=== PATIENT | male | born 1970 | race Caucasian/White ===

== ENCOUNTER 2018-12-29 08:15 | Emergency (ER) | payer OTHER, SELFPAY ==
[2018-12-29 08:17] VITALS: BP 145/99; PULSE 106; RESP 17; TEMP 36.7; O2SAT 94; BMI 28.5
--- NOTE | 2018-12-29 08:25 | RAD_ITS ---
STUDY: X-RAY - RIGHT SHOULDER REASON FOR EXAM: Male, 48 years old. Post reduction examination. TECHNIQUE: 2 view(s) of the shoulder. COMPARISON: None. FINDINGS: Normal glenohumeral articulation. Normal acromioclavicular joint. Normal acromion. Normal humeral head and visualized proximal humerus. The soft tissue structures are unremarkable. Normal visualized pulmonary apex. RAD/Shoulder min 2 Views IMPRESSION: Normal x-ray examination of the shoulder. Electronically Signed: Dev Burns, at 9:04 EDT , Service support ,
--- NOTE | 2018-12-29 08:40 | ED.DCSUM_ITS ---
- ER Visit Summary Date of Service: 12/29/18 Chief Complaint: [Right shoulder pain/dislocation] History of Present Illness: The patient is a 48 M [presents to the emergency department complaining of pain in his right shoulder and inability to put his arm down. Patient states that he reached for a light bulb last night and felt a pop in his shoulder and was unable to straighten out his shoulder. Patient states that occurred around 9 or 10 PM last night but thought that if he would lay down to go to sleep that it would be better in the morning. Patient had been drinking last night. He denies any falls or other injuries. Patient significant other is with him and states that she witnessed the event there was no other injuries. Patient is right-hand dominant. Patient has no other medical history.] Physical Examination: [HEENT-PERRLA, EOMI. Cranial nerves II through XII g rossly intact. TMs clear. Mucous membranes moist. No adenopathy. Cardiovascular-regular rate and rhythm without murmur or ectopy Lungs-clear to auscultation, chest wall stable without crepitus or subcu emphysema Abdomen-normoactive bowel sounds, soft, nontender, no rebound or rigidity, no peritoneal signs. Extremities-intact ?4, normal range of motion, normal pulses. Right arm-patient holds the arm extended above his head. He has normal sensation normal cap refill. Patient unable to abduct the arm at the shoulder.] Test Results: [X-ray of right shoulder after reduction in ER was obtained which showed good reduction of the shoulder joint and no evidence of fractures.] Emergency Department Course and Treatment: [During examination I applied some traction superiorly on the right arm and he stated that that actually felt much better with tension on it. While I slowly increased tension the arm popped back into the socket. Patient had good pain relief with that and was then able to move the arm and put the arm down to the side.] Treatment Plan: [Patient was placed in a sling. Patient advised not to reach over his head. Patient was given work restrictions as far as no use right arm until cleared by orthopedics.] Disposition: [Discharged home in stable condition. Patient will be referred to orthopedics for follow-up with ] Impression: [Right shoulder dislocation-reduced by emergency room physician.] This note was generated with [employer] software. It may contain incorrect words, spelling, and punctuation that were not noted in review of the chart prior to signing ED Disposition - Plan for ED Patient: Referrals: Mehul Swan MD [Primary Care Provider] -
--- NOTE | 2018-12-29 08:51 | ED.DEP ---
ED Disposition - Plan for ED Patient: Instructions: DISLOCATION: SHOULDER (Reduced) Referrals: Mehul Swan MD [Primary Care Provider] - Shauna Sexton DO [STAFF PHYSICIAN] - 3-5 Days
[2018-12-29 08:56] VITALS: BP 148/98; PULSE 83; RESP 18
== END 2018-12-29 08:58 | disposition home or self-care (01) ==
LOC: ED 08:50
PROVIDERS: Emergency Provider Emergency Medicine; Family Provider Family Medicine; PCP Family Medicine
DX: S43.004A Unspecified dislocation of right shoulder joint, initial encounter (principal); X50.1XXA Overexertion from prolonged static or awkward postures, initial encounter; Y93.9 Activity, unspecified; Y92.9 Unspecified place or not applicable; Y99.9 Unspecified external cause status
CPT/HCPCS: 23650; 73030; 99283

== ENCOUNTER → 2021-11-16 | Outpatient (CLI) | payer OTHER, SELFPAY ==
[2021-11-16 10:13] LABS: Absolute Lymphocyte Count 1.51 X10^3/uL (0.83-4.51); Absolute Neutrophil Count 2.5 X10^3/uL (2.0-7.7); Basophil# 0.04 X10^3/uL; Basophil% 0.8 % (0-1); Eosinophil# 0.11 X10^3/uL; Eosinophils% 2.3 % (0-5); Hematocrit 46.1 % (40-54); Lymphocyte # 1.51 X10^3/ul (0.83-4.51); Lymphocyte % 32.1 % (19-41); Mean Corp Hgb Conc 34.7 g/dL (32-36); Mean Corpuscular Hgb 33.7 pg (27.0-32.0); Mean Corpuscular Volume 97.1 fL (80-94); Mean Platelet Vol. 9.1 fl (6.2-12.0); Monocyte% 10.6 % (0-10); NRBC Flagged by Analyzer 0 % (0-5); Neutrophil # 2.53 X10^3/uL (2.7-7.7); Neutrophil % 53.8 % (47-70); Platelet Count 207 K/mm3 (150-450); RBC Distribution Width CV 11.5 % (11.6-14.6); RBC Distribution Width SD 41.1 fl (35.1-43.9); Red Blood Count 4.75 M/mm3 (4.6-6.2); White Blood Count 4.7 K/mm3 (4.4-11.0)
[2021-11-16 10:38] LABS: Microalbumin,Random Urine 15.9 mg/L (NO RANGE EST.); Microalbumin:Creatinine Ratio 9.8 mg/g CRE (<30 mg/g CRE)
[2021-11-16 10:39] LABS: ALB/GLOB Ratio 1.2 RATIO (0.9-2.4); AST(SGOT) 24 U/L (15-37); Alanine Aminotransfer ALT/SGPT 44 U/L (16-61); Alkaline Phosphatase 64 U/L (45-117); Anion Gap 2 (5-15); BUN 15 mg/dL (7-18); BUN/Creat Ratio 15.1 RATIO (10-20); Chloride 106 mmol/L (98-107); Cholesterol 202 mg/dL (200); Creatinine, Serum 0.99 mg/dL (0.70-1.30); EST Glomerular Filtration Rate 84 mL/min (>60); Est Glom Filt Rate - Afr Amer 102 mL/min (>60); Globulin 3.3 g/dL (2.2-4.2); Glucose 101 mg/dL (74-106); High Density Lipoprotein 51 mg/dL; Potassium 4.2 mmol/L (3.5-5.1); Protein, Total 7.3 g/dL (6.4-8.2); Sodium Level 137 mmol/L (136-145); Thyroid Stim Hormone (TSH) 1.31 uIU/mL (0.358-3.74); Triglycerides 178 mg/dL; Very Low Density Lipoprotein 36 mg/dL (5-40)
[2021-11-16 10:42] LABS: Hemoglobin A1c 4.8 % (3.8-5.6)
== END | disposition home or self-care (01) ==
LOC: LAB 09:19
PROVIDERS: Nurse Practitioner Family; PCP Family Medicine; Visit Provider Family Medicine
DX: I10 Essential (primary) hypertension (principal)
CPT/HCPCS: 80053; 80061; 82043; 82570; 83036; 84443; 85025